=== PATIENT | male | born 1965 | race Caucasian/White ===

== ENCOUNTER → 2019-06-20 | Outpatient (CLI) | payer BC ==
--- NOTE | 2019-06-20 08:40 | US ---
EXAMINATION TYPE: US prostate transrectal DATE OF EXAM: 06/20/2019 COMPARISON: NONE CLINICAL HISTORY: R97.2 elevated PSA. Elevated PSA, urinary frequency This examination was performed using the transrectal probe. EXAM MEASUREMENTS: Gland Size: 4.1 x 1.9 x 4.4cm Volume: 17.9ml Predicted PSA: 2.15 Actual PSA (if available):6.7 Heterogeneous gland. No evidence of nodule within peripheral zone Initial images some of vesicles are all within normal limits. There is heterogeneous normal sized pro state with few central calcifications. No suspicious hypoechoic nodules. IMPRESSION: As above. Actual PSA out of proportion to the expected PSA. Consider ultrasound-guided random biopsies or MRI prostate to further evaluate. Advise urology referral to discuss with patient and decide above. Predicted PSA = volume x 0.12 ng/ml Calculated Volume = 0.5236 x L x W x H
== END | disposition home or self-care (01) ==
LOC: RADUSWWP 06:44
PROVIDERS: ATTEND Internal Medicine
DX: R97.20 Elevated prostate specific antigen [PSA] (principal)
CPT/HCPCS: 76872

== ENCOUNTER → 2019-09-03 | Outpatient (CLI) | payer BC ==
--- NOTE | 2019-09-03 12:57 | CT ---
EXAMINATION TYPE: CT abdomen pelvis wo con DATE OF EXAM: 09/03/2019 COMPARISON: None HISTORY: 53-year-old male RUQ pain CT DLP: 672.6 mGycm. Automated exposure control for dose reduction was used. TECHNIQUE: Contiguous axial scanning of the abdomen and pelvis without IV contrast. Coronal and sagit lisette reconstructions performed. FINDINGS: Heart normal size with trace anterior basilar pericardial fluid. Lung bases clear without pleural eff usion. Liver borderline enlarged at 18.1 cm. Otherwise, noncontrast appearance of the liver, gallbladder, ad renal glands, left kidney, spleen, pancreas show no gross abnormality. Eggshell calcifications at the right kidney hilum measuring 1 cm. On coronal, this seems to correspon d to vasculature, possible tiny renal artery aneurysm. No collecting system or ureteral calculus is i dentified. No hydronephrosis. No dilated small bowel, free fluid, or free air. No mesenteric or retroperitoneal lymphadenopathy. Normal appendix. Redundant sigmoid colon. Mild to moderate stool burden. No pericolonic inflammatory change. Bladder partially distended. Prostate gland measures 3.9 cm wide. No abnormal fluid collection the pe lvis or pelvic lymphadenopathy. Bones: Mild degenerative changes at the hips. Degenerative disc disease L4-L5 with facet arthropathy lower lumbar spine. Additional moderate degenerative disc disease lower thoracic spine. IMPRESSION: 1. Borderline hepatomegaly at 18.1 cm. 2. 1 cm eggshell calcification at the right kidney hilum to correspond to vasculature. Findings sugg est a tiny renal artery aneurysm. 3. No nephrolithiasis or hydronephrosis. No other acute inflammatory process in the abdomen or pelvi s to explain the patient's symptoms.
== END | disposition home or self-care (01) ==
LOC: RADCTMAIN 10:55
PROVIDERS: ATTEND Internal Medicine
DX: R16.0 Hepatomegaly, not elsewhere classified (principal)
CPT/HCPCS: 74176

== ENCOUNTER 2019-12-16 23:00 | Emergency (ER) | payer BC ==
[2019-12-16 23:07] VITALS: BP 166/97; PULSE 100; RESP 19; TEMP 98.4
--- NOTE | 2019-12-16 23:12 | ED ---
Psych HPI - General Stated Complaint: Police petition Time Seen by Provider: 12/16/19 23:02 Source: patient, police, RN notes reviewed Mode of arrival: ambulatory Limitations: no limitations - History of Present Illness Initial Comments: 54-year-old male presents emergency Department with police for psychiatric evaluation. Patient states it is very depressed, having suicidal thoughts with no plan. Denies illicit drug use no alcohol abuse. Patient states that he is depressed and suicidal due to break up of his fiance. Patient denies any self- harm. Patient does have a history of diabetes and hypertension does not missed any doses medications no physical complaints. MD Complaint: suicidal ideation - Related Data Allergies Allergy/AdvReac Type Severity Reaction Status Date / Time No Known Allergies Allergy Verified 12/16/19 23:07 Review of Systems ROS Statement: Those systems with pertinent positive or pertinent negative responses have been documented in the HPI. ROS Other: All systems not noted in ROS Statement are negative. Past Medical History Past Medical History: Diabetes Mellitus, Hypertension History of Any Multi-Drug Resistant Organisms: None Reported Past Surgical History: No Surgical Hx Reported Past Psychological History: No Psychological Hx Reported Smoking Status: Never smoker Past Alcohol Use History: None Reported Past Drug Use History: None Reported General Exam General appearance: alert, in no apparent distress Head exam: Present: atraumatic, normocephalic, normal inspection Eye exam: Present: normal appearance, PERRL, EOMI. Absent: scleral icterus, conjunctival injection, periorbital swelling ENT exam: Present: normal exam, normal oropharynx, mucous membranes moist Neck exam: Present: normal inspection, full ROM. Absent: tenderness, meningismus, lymphadenopathy Respiratory exam: Present: normal lung sounds bilaterally. Absent: respiratory distress, wheezes, rales, rhonchi, stridor Cardiovascular Exam: Present: regular rate, normal rhythm, normal heart sounds. Absent: systolic murmur, diastolic murmur, rubs, gallop, clicks GI/Abdominal exam: Present: soft, normal bowel sounds. Absent: distended, tenderness, guarding, rebound, rigid Neurological exam: Present: alert, oriented X3, CN II-XII intact Psychiatric exam: Present: depressed, flat affect Skin exam: Present: warm, dry, intact, normal color. Absent: rash Course Vital Signs 12/16/19 23:03 Temperature 98.4 F Pulse Rate 100 Respiratory 19 Rate Blood Pressure 166/97 O2 Sat by Pulse 98 Oximetry Medical Decision Making - Medical Decision Making Patient evaluated by EPS case discussed with psychiatrist recommends outpatient treatment. Patient does contract for safety. Patient's's brother was contacted will pick patient up. Patient states that he is just that that is not suicidal at this time. - Lab Data Lab Results 12/16/19 12/16/19 Range/Units 23:24 23:52 POC Glucose (mg/dL) 176 H (75-99) mg/dL POC Glu Asphalt Spreader ID Florecita Amado Urine Opiates Screen Detected H (NotDetected) Ur Oxycodone Screen Not Detected (NotDetected) Urine Methadone Screen Not Detected (NotDetected) Ur Propoxyphene Screen Not Detected (NotDetected) Ur Barbiturates Screen Not Detected (NotDetected) U Tricyclic Antidepress Detected H (NotDetected) Ur Phencyclidine Scrn Not Detected (NotDetected) Ur Amphetamines Screen Not Detected (NotDetected) U Methamphetamines Scrn Not Detected (NotDetected) U Benzodiazepines Scrn Not Detected (NotDetected) Urine Cocaine Screen Not Detected (NotDetected) U Marijuana (THC) Screen Not Detected (NotDetected) Disposition Clinical Impression: Depression Disposition: HOME SELF-CARE Condition: Stable Instructions (If sedation given, give patient instructions): Depression (ED) Additional Instructions: Please return to the Emergency Department if symptoms worsen or any other concerns. Is patient prescribed a controlled substance at d/c from ED?: No Referrals: Aram Olivo MD [Primary Care Provider] - 1-2 days Time of Disposition: 01:45
[2019-12-16 23:54] LABS: Glucose,Whole Blood 176 mg/dL (75-99)
[2019-12-17] LABS: Amphetamine Screen,Urine Not Detected (NotDetected); Barbiturate Screen,Urine Not Detected (NotDetected); Benzodiazepines Screen,Urine Not Detected (NotDetected); Cocaine Screen,Urine Not Detected (NotDetected); Methadone Screen, Urine Not Detected (NotDetected); Opiate Screen,Urine Detected (NotDetected); Oxycodone Screen, Urine Not Detected (NotDetected); Phencyclidine Screen,Urine Not Detected (NotDetected); Tricyclic Antidepressant,Urine Detected (NotDetected); Urn Cannabinoid Scrn Not Detected (NotDetected)
== END 2019-12-17 02:03 | disposition home or self-care (01) ==
LOC: EC 23:00
DX: F32.9 Major depressive disorder, single episode, unspecified (principal); E11.9 Type 2 diabetes mellitus without complications; I10 Essential (primary) hypertension
CPT/HCPCS: 36415; 80306; 82075; 99285

== ENCOUNTER → 2020-05-19 | Outpatient (CLI) | payer BC ==
--- NOTE | 2020-05-19 13:44 | XR ---
EXAMINATION TYPE: XR shoulder limited LT DATE OF EXAM: 05/19/2020 COMPARISON: NONE HISTORY: Pain TECHNIQUE: Two views are submitted. FINDINGS: The osseous structures are intact. There is no acute fracture or dislocation. Arthropathy of the AC joint. IMPRESSION: 1. AC joint arthropathy.
== END | disposition home or self-care (01) ==
LOC: RADXRMAIN 13:16
PROVIDERS: ATTEND Internal Medicine
DX: M12.812 Other specific arthropathies, not elsewhere classified, left shoulder (principal); G89.29 Other chronic pain

== ENCOUNTER → 2020-10-25 | Outpatient (CLI) | payer BC ==
[2020-10-25 10:53] LABS: African American GFR (CKD) >90 (>60 ml/min/1.73 sqM); Blood Urea Nitrogen 26 mg/dL (9-20); Non-African American GFR(CKD) 88 (>60 ml/min/1.73 sqM)
--- NOTE | 2020-10-25 12:11 | CT ---
EXAMINATION TYPE: CT angio thor/abd pel aorta DATE OF EXAM: 10/25/2020 COMPARISON: 09/03/2019 HISTORY: Splenic artery aneurysm CT DLP: 1061.5 mGycm CONTRAST: CTA thoracic and abdominal aorta with 3-D reconstruction is performed and with IV Contrast, patient i njected with 100 mL of Isovue 370. Contrast CTA of the thoracic and abdominal aorta was performed from the lung apex through the base of the pelvis. 3-D reconstruction imaging obtained at a separate workstation. CT Chest: THORACIC AORTA: There is no evidence for aneurysm. No dissection or mediastinal hematoma. Mild ath eromatous changes are seen. LUNGS: The lungs are clear and free of infiltrate or atelectasis. No pulmonary nodule or mass is det ected. No pleural effusion or CT evidence of interstitial lung disease. MEDIASTINUM: The heart is not enlarged. No evidence for mediastinal mass or adenopathy. HILAR STRUCTURES: No evidence for mass. No hilar adenopathy is appreciated. OTHER: No significant abnormality. CONTRAST CT ABDOMEN AND PELVIS ABDOMINAL AORTA: No evidence for abdominal aortic aneurysm. No dissection. Iliac vessels are symmet emily and patent. LIVER/GB- No significant abnormality is seen. PANCREAS- No significant abnormality is seen. SPLEEN-no evidence for splenic artery aneurysm. ADRENALS- No significant abnormality is seen. KIDNEYS/BLADDER-9 mm shell calcification right renal hilum corresponds to a small renal artery aneury sm. BOWEL- No Significant abnormality GENITAL ORGANS: No gross abnormality seen. LYMPH NODES- No greater than 1cm abdominal or pelvic lymph nodes areappreciated. OSSEOUS STRUCTURES- No significant abnormality is seen. OTHER- No significant abnormality is seen. IMPRESSION- 1. No evidence of splenic artery aneurysm. 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
== END | disposition home or self-care (01) ==
LOC: RADCTMAIN 10:15
PROVIDERS: ATTEND Thoracic Surgery (Cardiothoracic Vascular Surgery)
DX: I72.8 Aneurysm of other specified arteries (principal)
CPT/HCPCS: 82565; 84520; 71275; 36415; 74174; Q9967

== ENCOUNTER → 2021-02-04 | Outpatient (CLI) | payer BC ==
[~2021-02-04] MED LIST: BAMLANIVIMAB (EUA) 700 MG, ETESEVIMAB (EUA) 1,400 MG in SODIUM CHLORIDE 0.9% 50 ML IVPB ONE; SODIUM CHLORIDE 0.9% 50 ML IVPB ONE; SODIUM CHLORIDE 0.9% 500 ML 500 ML in EMPTY BAG 1 BAG IV PRN
[2021-02-04 10:34] VITALS: RESP 16
[2021-02-04 12:02] VITALS: BP 113/76; PULSE 91; TEMP 98.8
== END | disposition home or self-care (01) ==
LOC: PROCWHC3 10:00
PROVIDERS: ATTEND Internal Medicine
DX: U07.1 COVID-19 (principal)
CPT/HCPCS: 96361; 96365; J3490; M0245

== ENCOUNTER → 2021-09-22 | Outpatient (CLI) | payer BC ==
--- NOTE | 2021-09-22 08:48 | US ---
EXAMINATION TYPE: US abdomen complete DATE OF EXAM: 09/22/2021 COMPARISON: CT 2019, US 2013 CLINICAL HISTORY: R63.4 Weight loss; R11.0 Nausea. WT LOSS, NAUSEA x7 MONTHS EXAM MEASUREMENTS: Liver Length: 16.9 cm Gallbladder Wall: 0.3 cm CBD: 0.6 cm Spleen: 10.4 cm Right Kidney: 8.7 x 4.9 x 4.2 cm Left Kidney: 10.2 x 5.6 x 4.8 cm Technically difficult due to gas Pancreas: Obscured by bowel gas Liver: wnl Gallbladder: wnl Evidence for sonographic Chaudhry's sign: No CBD: wnl Spleen: wnl Right Kidney: No hydronephrosis or masses seen Left Kidney: No hydronephrosis or masses seen Upper IVC: Obscured by overlying bowel gas Abd Aorta: wnl IMPRESSION: 1. Visualized abdomen ultrasound is unremarkable.
== END | disposition home or self-care (01) ==
LOC: RADUSWWP 06:40
PROVIDERS: ATTEND Internal Medicine
DX: R63.4 Abnormal weight loss (principal); R11.0 Nausea
CPT/HCPCS: 76700